=== PATIENT | male | born 1955 | race Caucasian/White ===

== ENCOUNTER 2020-10-30 13:39 | Observation (INO) | payer BC, OTHER ==
[~2020-10-30] VITALS: Ht 175.3 cm; Wt 120.5 kg
[2020-10-30 14:30] LABS: BASOPHILS # (AUTO) 0.1 X10'3 (0-0.2); EOSINOPHILS # (AUTO) 0.3 X10'3 (0-0.9); EOSINOPHILS % (AUTO) 3.7 % (0-6); HEMOGLOBIN 13.5 g/dl (14.0-17.9); LYMPHOCYTES # (AUTO) 0.9 X10'3 (1.1-4.8); MEAN CORPUSCULAR HEMOGLOBIN 28.2 PG (27.0-31.0); MEAN CORPUSCULAR HGB CONC 32.9 g/dL (33.0-36.5); MEAN CORPUSCULAR VOLUME 85.6 FL (78-98); MEAN PLATELET VOLUME 8.8 FL (7.4-10.4); MONOCYTES # (AUTO) 0.6 X10'3 (0-0.9); MONOCYTES % (AUTO) 7.5 % (2-12); NEUTROPHILS % (AUTO) 76.8 % (42-75); PLATELET COUNT 207 X10'3 (140-440); RED BLOOD COUNT 4.79 X10'6 (4.70-6.10); RED CELL DISTRIBUTION WIDTH 15.9 % (11.5-14.5); WHITE BLOOD COUNT 7.8 X10'3 (4.5-11.0)
[2020-10-30 14:58] LABS: ALANINE AMINOTRANSFERASE 34 U/L (12-78); ALBUMIN 3.6 G/DL (3.4-5.0); ALBUMIN/GLOBULIN RATIO 0.9 (1.1-1.5); ALKALINE PHOSPHATASE 47 IU/L (46-116); ANION GAP 10 (8-16); ASPARTATE AMINO TRANSFERASE 25 U/L (10-37); BILIRUBIN,TOTAL 0.4 MG/DL (0.1-1.0); BLOOD UREA NITROGEN 22 MG/DL (7-18); BUN/CREATININE RATIO 16.4 (5.4-32.0); CALCIUM 9.6 MG/DL (8.5-10.1); CHLORIDE 104 MMOL/L (99-107); CREATININE 1.34 MG/DL (0.60-1.10); GLUCOSE 109 MG/DL (70-104); POTASSIUM 4.5 MMOL/L (3.5-5.1); SODIUM 139 MMOL/L (135-145); TOTAL CARBON DIOXIDE 25.4 MMOL/L (24-32); TOTAL PROTEIN 7.4 G/DL (6.4-8.2); eGFR 54 ML/MIN
[2020-10-30] MEDS ORDERED: WARF6TAB49 PO (15:33)
[2020-10-30] MEDS ORDERED: FLO0.4C PO (15:33)
[2020-10-30] MEDS ORDERED: METF-438 PO (15:33)
[2020-10-30] MEDS ORDERED: CHLO25TA10 PO (15:33)
[2020-10-30] MEDS ORDERED: ROSU40TA22 PO (15:33)
[2020-10-30] MEDS ORDERED: OLME40TA18 PO (15:33)
[2020-10-30] MEDS ORDERED: CARV80CP PO (15:33)
[2020-10-30] MEDS ORDERED: SERT50TA10 PO (15:34)
[2020-10-30] MEDS ORDERED: amLODIPine 5mg tablet PO ONE (15:35)
[2020-10-30] MEDS ORDERED: acetaminophen 325mg tablet PO PRN (16:00)
[2020-10-30] MEDS ORDERED: potassium Cl 20 mEq SR tablet PO PRN ×2 (16:00)
[2020-10-30] MEDS ORDERED: potassium Cl 40MEQ/1/2NS 520ml 520 ML IV PRN ×2 (16:00)
[2020-10-30] MEDS ORDERED: magnesium 2GM in 50ml NS 50 ML IV PRN (16:00)
[2020-10-30] MEDS ORDERED: magnesium Cl slow-release 64mg tablet PO PRN (16:00)
[2020-10-30] MEDS ORDERED: magnesium 4gm in 100ml NS 100 ML IV PRN (16:00)
[2020-10-30] MEDS ORDERED: nitroGLYCERIN 0.4mg SUBLingual tab SL PRN (16:20)
[2020-10-30] MEDS ORDERED: LORazepam 2 mg/ml vial IV ONE (16:50)
[2020-10-30] MEDS: nitroGLYCERIN 0.2mg/hour patch TD SCH (17:25)
[2020-10-30] MEDS ORDERED: dextrose ORAL solution 15 GM/59 ML bottle PO PRN ×2 (18:45)
[2020-10-30] MEDS ORDERED: MESSAGE TO PHARMACY PO ONE (18:45)
[2020-10-30] MEDS ORDERED: insulin Lispro (HumaLOG) vial - multi-dose SQ SCH (18:45)
[2020-10-30] MEDS ORDERED: dextrose 50%-water 50ml dispensing syringe IV PRN ×2 (18:45)
[2020-10-30] MEDS ORDERED: glucagon, human recombinant 1mg kit SUBCUT PRN (18:45)
[2020-10-30 19:01] LABS: HEMOGLOBIN A1C 6.3 % (4.5-6.2)
[2020-10-30] MEDS: heparin, porcine 5000 units/ml vial SQ SCH (19:17)
[2020-10-30] MEDS: hydrALAZINE 20mg/ml inj. IV SCH (19:18)
[2020-10-30] MEDS: acetaminophen 325mg tablet PO PRN (19:19)
[2020-10-30] MEDS: docusate sod 100mg capsule PO SCH (19:19)
[2020-10-30] MEDS: morphine 2 MG/ML inj. syringe IV PRN ×2 (19:19→23:33)
[2020-10-30] MEDS: K and/or MAG REPLACEMENT MC SCH (19:41)
[2020-10-30] MEDS: warfarin 3mg tablet PO SCH (20:55)
[2020-10-30] MEDS: insulin glargine (Lantus) pen - multi-dose SQ SCH (21:00)
[2020-10-30 22:00] VITALS: BP 165/80
--- NOTE | 2020-10-30 22:13 | NUR ---
Page Sent promotional table spacer PAGER ID: [phone] MESSAGE: [place] Hendricks rm [id number] Pt left his CPap at home. Can we have an order for RT to set up a CPap while he is here? Thank you. Elyse [phone]
[2020-10-30] MEDS: ondansetron/PF 4mg/2ml inj IV PRN (23:33)
[2020-10-31] MEDS: hydrALAZINE 20mg/ml inj. IV SCH ×4 (02:03→19:53)
[2020-10-31 03:00] VITALS: BP 183/91
[2020-10-31 03:56] LABS: BASOPHILS # (AUTO) 0.1 X10'3 (0-0.2); BASOPHILS % (AUTO) 0.7 % (0-1); EOSINOPHILS # (AUTO) 0.2 X10'3 (0-0.9); EOSINOPHILS % (AUTO) 2.9 % (0-6); HEMATOCRIT 39.5 % (42.0-52.0); HEMOGLOBIN 13.1 g/dl (14.0-17.9); LYMPHOCYTES # (AUTO) 0.7 X10'3 (1.1-4.8); LYMPHOCYTES % (AUTO) 8.3 % (21-51); MEAN CORPUSCULAR HEMOGLOBIN 28.1 PG (27.0-31.0); MEAN CORPUSCULAR HGB CONC 33.2 g/dL (33.0-36.5); MEAN CORPUSCULAR VOLUME 84.6 FL (78-98); MEAN PLATELET VOLUME 8.8 FL (7.4-10.4); MONOCYTES # (AUTO) 0.5 X10'3 (0-0.9); MONOCYTES % (AUTO) 6.2 % (2-12); NEUTROPHILS # (AUTO) 6.9 X10'3 (1.8-7.7); NEUTROPHILS % (AUTO) 81.9 % (42-75); PLATELET COUNT 193 X10'3 (140-440); RED BLOOD COUNT 4.66 X10'6 (4.70-6.10); RED CELL DISTRIBUTION WIDTH 15.6 % (11.5-14.5); WHITE BLOOD COUNT 8.4 X10'3 (4.5-11.0)
[2020-10-31 04:09] LABS: GLUCOSE 158 MG/DL (70-104)
[2020-10-31 04:10] LABS: ANION GAP 12 (8-16); BLOOD UREA NITROGEN 22 MG/DL (7-18); BUN/CREATININE RATIO 16.4 (5.4-32.0); CHLORIDE 103 MMOL/L (99-107); CREATININE 1.34 MG/DL (0.60-1.10); MAGNESIUM 1.5 MG/DL (1.5-2.4); POTASSIUM 3.6 MMOL/L (3.5-5.1); SODIUM 138 MMOL/L (135-145); TOTAL CARBON DIOXIDE 23.1 MMOL/L (24-32); eGFR 54 ML/MIN
[2020-10-31 04:11] LABS: ALBUMIN 3.4 G/DL (3.4-5.0)
[2020-10-31 07:00] VITALS: BP 156/80
[2020-10-31 07:32] VITALS: BP 185/101
[2020-10-31] MEDS: K and/or MAG REPLACEMENT MC SCH ×2 (08:00→19:53)
[2020-10-31] MEDS: nitroGLYCERIN 0.2mg/hour patch TD SCH ×2 (08:00→09:49)
[2020-10-31] MEDS ORDERED: nitroGLYCERIN 0.2mg/hour patch TD SCH (08:00)
[2020-10-31] MEDS: tamsulosin 0.4mg capsule PO SCH (08:27)
[2020-10-31] MEDS: docusate sod 100mg capsule PO SCH ×2 (08:27→19:51)
[2020-10-31] MEDS: heparin, porcine 5000 units/ml vial SQ SCH (08:29)
[2020-10-31] MEDS: atorvastatin 20mg tablet PO SCH (08:29)
[2020-10-31] MEDS: losartan 50mg tablet PO SCH (08:30)
[2020-10-31] MEDS: acetaminophen 325mg tablet PO PRN ×2 (08:31→20:05)
--- NOTE | 2020-10-31 09:29 | NUR ---
DM consult: Pt with A1c 6.3%, DM education not warranted at this time. Will continue to follow. Addendum: 10/31/20 at [address] Amended: Links added.
[2020-10-31] MEDS ORDERED: iohexol 350 MG/1 ML 200ml bottle ONE (10:02)
[2020-10-31] MEDS ORDERED: LIDOcaine 1% (10mg/ml)w/preservative injection 20ml MDV ONE (10:02)
[2020-10-31] MEDS ORDERED: iohexol 350 MG/ML 50ML vial IV ONE (10:02)
[2020-10-31] MEDS ORDERED: heparin 1,000unit/ml 10ml vial 10 ML ONE (10:02)
[2020-10-31] MEDS ORDERED: fentaNYL/PF 50MCG/1 ML 2ML syringe ONE (10:03)
[2020-10-31] MEDS ORDERED: midazolam 2 mg/2 ml injection ONE ×3 (10:03→10:44)
[2020-10-31] MEDS ORDERED: nitroGLYCERIN-Tridil 50MG/D5W 250 ML IV ONE (10:26)
[2020-10-31] MEDS ORDERED: verapamil 2.5 mg/ml inj IV ONE (10:26)
[2020-10-31] MEDS ORDERED: clopidogrel 300mg tablet ONE (11:14)
[2020-10-31] MEDS ORDERED: LORazepam 2 mg/ml vial IV PRN (13:15)
[2020-10-31] MEDS: ondansetron/PF 4mg/2ml inj IV PRN (13:39)
[2020-10-31 15:40] VITALS: BP 174/89
[2020-10-31] MEDS ORDERED: HYDROcodone/acetaminophen 5mg/325mg tablet PO PRN (15:50)
[2020-10-31] MEDS ORDERED: hydrALAZINE 20mg/ml inj. IV PRN (17:40)
[2020-10-31 18:00] VITALS: BP 175/92
--- NOTE | 2020-10-31 18:15 | NUR ---
Problems reprioritized. Patient report given, questions answered & plan of care reviewed with Erin LEWIS.
--- NOTE | 2020-10-31 18:31 | NUR ---
Patient in room PCU 3028. I have received report from Jaylene LEWIS and Liliana LEWIS and had the opportunity to ask questions and assume patient care.
[2020-10-31] MEDS ORDERED: proCHLORperazine 10 MG/2 ml inj IV PRN (18:45)
[2020-10-31] MEDS: carVEDilol 12.5mg tablet PO SCH (19:54)
--- NOTE | 2020-10-31 20:09 | NUR ---
Paged Dr Daniel Browning, [place] rm [id number]. Has order for coumadin tonight. Had heart cath and Plavix this am. Would you like the coumadin held or given? Erin LEWIS [phone]
[2020-10-31] MEDS: warfarin 3mg tablet PO SCH (20:11)
[2020-10-31] MEDS: insulin glargine (Lantus) pen - multi-dose SQ SCH (21:00)
[2020-10-31 22:00] VITALS: BP 156/82
[2020-11-01 02:00] VITALS: BP 148/71
[2020-11-01] MEDS: hydrALAZINE 20mg/ml inj. IV SCH ×3 (02:35→14:04)
--- NOTE | 2020-11-01 06:21 | NUR ---
Problems reprioritized. Patient report given, questions answered & plan of care reviewed with
--- NOTE | 2020-11-01 06:24 | NUR ---
Orientee documentation: I have reviewed and agree with all interventions, assessments performed and documented by Jorge Ann RN.
[2020-11-01 06:30] LABS: BASOPHILS % (AUTO) 0.5 % (0-1); EOSINOPHILS # (AUTO) 0.1 X10'3 (0-0.9); EOSINOPHILS % (AUTO) 1.7 % (0-6); HEMOGLOBIN 13.1 g/dl (14.0-17.9); LYMPHOCYTES # (AUTO) 0.7 X10'3 (1.1-4.8); LYMPHOCYTES % (AUTO) 10.1 % (21-51); MEAN CORPUSCULAR HEMOGLOBIN 28.5 PG (27.0-31.0); MEAN CORPUSCULAR HGB CONC 33.6 g/dL (33.0-36.5); MEAN CORPUSCULAR VOLUME 84.7 FL (78-98); MEAN PLATELET VOLUME 8.7 FL (7.4-10.4); MONOCYTES # (AUTO) 0.6 X10'3 (0-0.9); NEUTROPHILS # (AUTO) 5.8 X10'3 (1.8-7.7); NEUTROPHILS % (AUTO) 79.7 % (42-75); PLATELET COUNT 212 X10'3 (140-440); RED CELL DISTRIBUTION WIDTH 15.9 % (11.5-14.5); WHITE BLOOD COUNT 7.3 X10'3 (4.5-11.0)
[2020-11-01 06:32] LABS: ALBUMIN 3.4 G/DL (3.4-5.0); ANION GAP 9 (8-16); BLOOD UREA NITROGEN 21 MG/DL (7-18); CALCIUM 9.1 MG/DL (8.5-10.1); CHLORIDE 105 MMOL/L (99-107); CREATININE 1.61 MG/DL (0.60-1.10); GLUCOSE 115 MG/DL (70-104); MAGNESIUM 1.9 MG/DL (1.5-2.4); POTASSIUM 3.7 MMOL/L (3.5-5.1); SODIUM 141 MMOL/L (135-145); TOTAL CARBON DIOXIDE 26.6 MMOL/L (24-32); eGFR 43 ML/MIN
[2020-11-01] MEDS ORDERED: pantoprazole 40mg Tablet.DR PO SCH (07:30)
[2020-11-01] MEDS ORDERED: aspirin 81mg tablet.DR PO SCH (08:00)
[2020-11-01] MEDS: K and/or MAG REPLACEMENT MC SCH (08:00)
[2020-11-01] MEDS ORDERED: clopidogrel 75mg tablet PO SCH (08:00)
[2020-11-01] MEDS: tamsulosin 0.4mg capsule PO SCH (09:28)
[2020-11-01] MEDS: atorvastatin 20mg tablet PO SCH (09:29)
[2020-11-01] MEDS: docusate sod 100mg capsule PO SCH (09:29)
[2020-11-01] MEDS: carVEDilol 12.5mg tablet PO SCH (09:29)
[2020-11-01] MEDS: losartan 50mg tablet PO SCH (09:31)
[2020-11-01] MEDS ORDERED: CLOP75TA34 PO ×2 (13:15→13:33)
[2020-11-01] MEDS ORDERED: PANT-47 PO (13:33)
[2020-11-01] MEDS ORDERED: ASPI-1265 PO (13:33)
--- NOTE | 2020-11-01 13:36 | NUR ---
Paged Dr Peck "PAGER ID: [phone] MESSAGE: [phone] Radha [id number] Nallely patient was okayed by Dr Mcgraw to DC this morning. I put in the meds in the discharge"
[2020-11-01 14:04] VITALS: BP_SYST 120
== END 2020-11-01 16:04 | disposition home or self-care (01) ==
LOC: ER 13:40 → ED HOLD 15:57 → PCU 3S 21:36
PROVIDERS: ADMIT Internal Medicine; ATTEND Internal Medicine
DX: I25.110 Atherosclerotic heart disease of native coronary artery with unstable angina pectoris (principal); E11.9 Type 2 diabetes mellitus without complications; I10 Essential (primary) hypertension; E78.5 Hyperlipidemia, unspecified; N40.0 Benign prostatic hyperplasia without lower urinary tract symptoms; G47.30 Sleep apnea, unspecified; Z90.49 Acquired absence of other specified parts of digestive tract; Z95.5 Presence of coronary angioplasty implant and graft; Z79.01 Long term (current) use of anticoagulants; Z79.02 Long term (current) use of antithrombotics/antiplatelets; Z79.82 Long term (current) use of aspirin; Z79.84 Long term (current) use of oral hypoglycemic drugs; Z79.899 Other long term (current) drug therapy
CPT/HCPCS: 36415; 71045; 80048; 80053; 82948; 83036; 83735; 83880; 84484; 85025; 85610; 87081; 93005; 93306; 93458; 94660; 94760; 96372; 96374; 96375; 96376; 99285; C1725; C1751; C1760; C1769; C1874; C1894; C9600; G0378; J0360; J0780; J1644; J2001; J2060; J2250; J2270; J2405; J3010; Q9967; 99152; 99153; A4620; A6258; J1815; J3490